=== PATIENT | male | born 1980 | race Hispanic/Latino ===

== ENCOUNTER 2024-07-25 12:22 | Emergency (ER) | payer OTHER, BC ==
[~2024-07-25] VITALS: Ht 172.7 cm; Wt 113.4 kg
[2024-07-25] MEDS: acetaMINOPHEN 500 MG TABLET PO ONE (13:30)
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
--- NOTE | 2024-07-25 13:59 | HMCIMG ---
PORTABLE CHEST RADIOGRAPH INDICATION: cp COMPARISON: None FINDINGS: Heart size is normal. The pulmonary vascularity and leticia appear normal. No abnormal pulmonary parenchymal opacity or consolidation identified. No significant pleural effusion noted. No pneumothorax detected. IMPRESSION: No radiographic evidence for any acute cardiopulmonary process.
[2024-07-25 14:21] VITALS: BP 166/81; PULSE 80; RESP 16; TEMP 98.3; O2SAT 98
--- NOTE | 2024-07-25 15:30 | HMCIMG ---
RIGHT KNEE RADIOGRAPHS - 3 VIEWS INDICATION: Pain COMPARISON: None FINDINGS: AP, lateral, oblique views No acute fracture or dislocation identified. No significant joint effusion is present. Soft tissues appear normal. No radiopaque foreign body noted. IMPRESSION: No radiographic evidence for fracture or dislocation.. LEFT KNEE RADIOGRAPHS - 3 VIEWS INDICATION: Pain COMPARISON: None FINDINGS: AP, lateral, oblique views No acute fracture or dislocation identified. No significant joint effusion is present. Soft tissues appear normal. No radiopaque foreign body noted.
== END 2024-07-25 14:32 | disposition home or self-care (01) ==
LOC: EDH 12:22
DX: S80.01XA Contusion of right knee, initial encounter (principal); S80.02XA Contusion of left knee, initial encounter; E11.9 Type 2 diabetes mellitus without complications; I10 Essential (primary) hypertension; V89.2XXA Person injured in unspecified motor-vehicle accident, traffic, initial encounter; Y93.89 Activity, other specified; Y92.89 Other specified places as the place of occurrence of the external cause; Y99.8 Other external cause status
CPT/HCPCS: 71045; 99284